=== PATIENT | female | born 1990 | race Caucasian/White ===

== ENCOUNTER 2018-08-11 08:38 | Day surgery (SDC) | payer OTHER ==
[~2018-08-11] VITALS: Ht 160 cm; Wt 54.4 kg
[2018-08-11] MEDS ORDERED: SYN.05 PO (10:17)
[2018-08-11] MEDS ORDERED: PANT40EC PO (10:17)
[2018-08-11] MEDS ORDERED: LIDOCAINE 2% 100 MG/5 ML UJET TP ONE (11:03)
[2018-08-11] MEDS ORDERED: KETOROLAC 30 MG/ML VIAL ONE (11:03)
== END 2018-08-11 12:20 | disposition home or self-care (01) ==
LOC: MDS 08:38 → MMU 08:38 → MDS 12:20
PROVIDERS: ATTEND Internal Medicine Gastroenterology
DX: K64.8 Other hemorrhoids (principal); J45.909 Unspecified asthma, uncomplicated; E06.3 Autoimmune thyroiditis; K21.9 Gastro-esophageal reflux disease without esophagitis; G43.909 Migraine, unspecified, not intractable, without status migrainosus; Z98.890 Other specified postprocedural states; Z88.8 Allergy status to other drugs, medicaments and biological substances; Z79.2 Long term (current) use of antibiotics; Z79.899 Other long term (current) drug therapy; Z87.440 Personal history of urinary (tract) infections
CPT/HCPCS: 45330; 81025; J1885